=== PATIENT | male | born 1975 | race Caucasian/White ===

== ENCOUNTER 2023-08-29 18:14 | Emergency (ER) | payer SELFPAY ==
[2023-08-29] MEDS: HYDROmorphone 1 MG/ML Syringe IVPUSH ONE (18:30)
[2023-08-29 18:40] LABS: BASOPHILS PERCENT AUTO 0.3 % (0.2-1.2); EOSINOPHILS ABSOLUTE AUTO 0.2 x10^3/uL (0.0-0.5); EOSINOPHILS PERCENT AUTO 1.9 % (0.0-4.0); HEMOGLOBIN 14.1 g/dL (14.0-18.0); IMMATURE GRAN ABSOLUTE AUTO 0.01 x10^3/uL (0.00-0.07); LYMPHOCYTES ABSOLUTE AUTO 4.3 x10^3/uL (1.0-4.8); LYMPHOCYTES PERCENT AUTO 42.8 % (25.0-50.0); MEAN CORPUSCULAR HEMOGLOBIN 32.3 pg (26.0-32.0); MEAN CORPUSCULAR HGB CONC 35.3 g/dL (32.0-36.0); MEAN CORPUSCULAR VOLUME 91.7 fL (78.0-93.0); MONOCYTES ABSOLUTE AUTO 0.8 x10^3/uL (0.0-0.8); MONOCYTES PERCENT AUTO 8.2 % (2.0-11.0); NEUTROPHILS ABSOLUTE AUTO 4.7 x10^3/uL (1.8-7.7); NEUTROPHILS PERCENT AUTO 46.7 % (50.0-80.0); PLATELET COUNT,PLT 247 x10^3/uL (130-400); RED BLOOD CELL COUNT 4.36 x10^6/uL (4.5-6.0); WHITE BLOOD CELL COUNT,WBC 10.1 x10^3/uL (4.0-10.0)
[2023-08-29] MEDS: Pantoprazole 40 MG Vial IVPUSH ONE (18:40)
[2023-08-29 18:55] LABS: APPEARANCE,URINE CLEAR (CLEAR); BILIRUBIN,URINE NEGATIVE (NEGATIVE); COLOR,URINE YELLOW (YELLOW); GLUCOSE,URINE NEGATIVE (NEGATIVE); KETONES,URINE NEGATIVE (NEGATIVE); LEUKOCYTE ESTERASE,URINE NEGATIVE (NEGATIVE); NITRITE,URINE NEGATIVE (NEGATIVE); OCCULT BLOOD,URINE NEGATIVE (NEGATIVE); PH,URINE 7.5 (5.0-8.0); PROTEIN,URINE NEGATIVE (NEGATIVE); UROBILINOGEN,URINE 0.2 EU/dL (0.2)
[2023-08-29 18:56] LABS: A/G RATIO 1.16; ALANINE AMINOTRANSFERASE,ALT 18 U/L (16-63); ALBUMIN 3.7 g/dL (3.4-5.0); ALKALINE PHOSPHATASE 75 U/L (46-116); ASPARTATE AMNIOTRANSFERASE,AST 18 U/L (15-37); BILIRUBIN TOTAL 0.7 mg/dL (0.2-1.0); BLOOD UREA NITROGEN,BUN 14 mg/dL (7-18); CALCIUM 8.9 mg/dL (8.5-10.1); CARBON DIOXIDE,CO2 25 mmol/L (21-32); CHLORIDE,CL 105 mmol/L (98-107); GLUCOSE RANDOM 145 mg/dL (70-99); LIPASE 66 U/L (19-71); POTASSIUM,K 3.8 mmol/L (3.5-5.1); PROTEIN TOTAL,TP 6.9 g/dL (6.4-8.2); SODIUM,NA 144 mmol/L (136-145)
[2023-08-29 18:57] LABS: ANION GAP 17.8 mmol/L (5-15); C-REACTIVE PROTEIN < 0.50 mg/dL (<=0.50); ESTIMATED GFR 94 mL/min (>=60)
[2023-08-29] MEDS: Iopamidol 612 MG/ML 100 ML Bottle IVPUSH ONE (19:55)
[2023-08-29] MEDS: Omeprazole 20 MG Cap.CR PO ONE (20:58)
== END 2023-08-29 21:03 | disposition home or self-care (01) ==
LOC: VM.ED 18:14
DX: K44.9 Diaphragmatic hernia without obstruction or gangrene (principal); Z88.0 Allergy status to penicillin; Z79.899 Other long term (current) drug therapy; Z87.891 Personal history of nicotine dependence
CPT/HCPCS: 36415; 74177; 80053; 81003; 83690; 85025; 86140; 96374; 96375; 99285; A9270; C9113; J1170; Q9967; 99284